=== PATIENT | female | born 1945 | race Caucasian/White ===

== ENCOUNTER 2019-10-13 07:29 | Inpatient (IN) | payer MEDICARE, MEDICAID ==
[~2019-10-13] VITALS: Ht 167.6 cm; Wt 46.8 kg
--- NOTE | 2019-10-13 08:27 | NUR ---
STAND BY ASSIST TO BATHROOM
[2019-10-13 09:05] LABS: BASOPHILS # (AUTO) 0.03 x10^3/uL (0-0.1); BASOPHILS % (AUTO) 0 % (0-1); EOSINOPHILS # (AUTO) 0.01 x10^3/uL (0-0.4); EOSINOPHILS % (AUTO) 0 % (1-7); LYMPHOCYTES # (AUTO) 1.49 x10^3/uL (1-3.4); LYMPHOCYTES % (AUTO) 10 % (22-44); MD NO; MEAN CORPUSCULAR HEMOGLOBIN 30.3 pg (27.0-34.8); MEAN PLATELET VOLUME 6.8 fL (7.4-10.4); MONOCYTES # (AUTO) 0.66 x10^3/uL (0.2-0.8); MONOCYTES % (AUTO) 4 % (2-9); NEUTROPHILS # (AUTO) 13.51 x10^3/uL (1.8-6.8); NEUTROPHILS % (AUTO) 86 % (42-75); PLATELET COUNT 253 x10^3/uL (130-400); RED BLOOD COUNT 4.37 x10^6/uL (3.82-5.3); RED CELL DISTRIBUTION WIDTH 14.6 % (9.6-15.2)
[2019-10-13 09:12] LABS: ALANINE AMINOTRANSFERASE 15 U/L (12-78); ALBUMIN 3.2 g/dL (3.4-5.0); ANION GAP 7 mmol/L (5-15); CALCIUM 8.8 mg/dL (8.5-10.1); CHLORIDE 95 mmol/L (98-107); CREATININE 0.78 mg/dL (0.55-1.02)
[2019-10-13 09:16] LABS: ALKALINE PHOSPHATASE 79 U/L (45-117); BILIRUBIN,TOTAL 0.5 mg/dL (0.2-1.0); TOTAL PROTEIN 7.1 g/dL (6.4-8.2)
[2019-10-13 09:18] LABS: TROPONIN I 0.422 ng/mL (0.000-0.045)
[2019-10-13] MEDS ORDERED: VANCOMYCIN PER PHARMACY MC PRN (09:30)
[2019-10-13] MEDS ORDERED: PIPERACILLIN/TAZO/PMX 3.375GM 50 ML ONE (09:43)
[2019-10-13] MEDS: PIPERACILLIN/TAZO/PMX 3.375GM 50 ML IV SCH ×3 (09:45→23:02)
--- NOTE | 2019-10-13 09:49 | NUR ---
STAND BY ASSIST TO BATHROOM. PT BACK RESTING IN BED, DILLAN LIGHT IN REACH
[2019-10-13] MEDS ORDERED: ONDANSETRON ODT 4 MG PO PRN (10:00)
[2019-10-13] MEDS ORDERED: hydrALAzine 20 MG/ML, 1ML IVPush PRN (10:00)
[2019-10-13] MEDS ORDERED: morphine SULFATE 10 MG/ML, 1ML IVPush PRN (10:00)
--- NOTE | 2019-10-13 10:15 | NUR ---
report called to thierry mendez
[2019-10-13 10:44] VITALS: BP 133/84
[2019-10-13] MEDS ORDERED: ALBUTEROL HFA 90 MCG/SPRAY INH PRN (11:00)
[2019-10-13] MEDS: METOPROLOL SUCCINATE 50 MG TAB.ER.24H PO SCH (11:00)
[2019-10-13] MEDS: AZITHROMYCIN 500 MG in SODIUM CHLORIDE 0.9% 250 ML IV SCH (11:00)
[2019-10-13] MEDS ORDERED: PHARMACOKINETIC CONSULTATION MC ONE (11:00)
[2019-10-13] MEDS ORDERED: PHARMACOKINETIC MONITORING MC PRN (11:00)
[2019-10-13] MEDS ORDERED: VANCOMYCIN 1,600 MG in SODIUM CHLORIDE 0.9% 250 ML IV ONE (11:30)
[2019-10-13 13:14] VITALS: BP 143/89
[2019-10-13] MEDS ORDERED: OxyconTIN ER 40 MG TAB.ER PO SCH (13:30)
[2019-10-13] MEDS ORDERED: OXYC80TA25 PO (13:47)
[2019-10-13] MEDS ORDERED: CYCL-259 PO (13:50)
[2019-10-13] MEDS ORDERED: GABA300C10 PO (13:50)
[2019-10-13] MEDS ORDERED: BUSP5TAB2 PO (13:50)
[2019-10-13] MEDS ORDERED: MONT10TA6 PO (13:50)
[2019-10-13 15:25] LABS: TROPONIN I 0.379 ng/mL (0.000-0.045)
[2019-10-13] MEDS ORDERED: RIVAROXABAN 20 MG TABLET PO SCH (17:00)
[2019-10-13 20:25] VITALS: BP 136/87
[2019-10-13] MEDS ORDERED: MONTELUKAST 10 MG TABLET PO SCH (21:00)
[2019-10-13] MEDS ORDERED: GABAPENTIN 100 MG CAPSULE PO SCH (21:00)
[2019-10-13] MEDS ORDERED: BUSPIRONE 5 MG TABLET PO SCH (21:00)
[2019-10-13] MEDS: OxyconTIN ER 40 MG TAB.ER PO SCH (21:03)
[2019-10-13] MEDS: GABAPENTIN 100 MG CAPSULE PO SCH (21:03)
[2019-10-13] MEDS: BUSPIRONE 5 MG TABLET PO SCH (21:04)
[2019-10-14 02:00] VITALS: BP 149/92
[2019-10-14 05:10] LABS: BASOPHILS # (AUTO) 0.05 x10^3/uL (0-0.1); BASOPHILS % (AUTO) 0 % (0-1); EOSINOPHILS # (AUTO) 0.24 x10^3/uL (0-0.4); EOSINOPHILS % (AUTO) 2 % (1-7); LYMPHOCYTES # (AUTO) 1.67 x10^3/uL (1-3.4); LYMPHOCYTES % (AUTO) 15 % (22-44); MD NO; MEAN CORPUSCULAR HEMOGLOBIN 30.3 pg (27.0-34.8); MEAN CORPUSCULAR VOLUME 91.7 fL (80-100); MEAN PLATELET VOLUME 6.8 fL (7.4-10.4); MONOCYTES # (AUTO) 0.78 x10^3/uL (0.2-0.8); MONOCYTES % (AUTO) 7 % (2-9); NEUTROPHILS # (AUTO) 8.47 x10^3/uL (1.8-6.8); NEUTROPHILS % (AUTO) 76 % (42-75); PLATELET COUNT 239 x10^3/uL (130-400); RED BLOOD COUNT 4.32 x10^6/uL (3.82-5.3); RED CELL DISTRIBUTION WIDTH 14.1 % (9.6-15.2)
[2019-10-14 05:17] LABS: ANION GAP 7 mmol/L (5-15); CALCIUM 8.1 mg/dL (8.5-10.1); CHLORIDE 97 mmol/L (98-107)
[2019-10-14 05:22] LABS: TROPONIN I 0.363 ng/mL (0.000-0.045)
[2019-10-14 05:30] VITALS: BP 137/81
[2019-10-14] MEDS: PIPERACILLIN/TAZO/PMX 3.375GM 50 ML IV SCH ×4 (05:33→22:48)
[2019-10-14] MEDS: METOPROLOL SUCCINATE 50 MG TAB.ER.24H PO SCH (05:34)
[2019-10-14] MEDS: BACLOFEN 10 MG TABLET PO PRN (06:26)
[2019-10-14] MEDS: VANCOMYCIN PMX 1GM/200ML 200 ML IVPB SCH ×2 (06:26→23:58)
[2019-10-14 07:30] VITALS: BP 150/92
[2019-10-14] MEDS: GABAPENTIN 100 MG CAPSULE PO SCH ×2 (08:32→21:28)
[2019-10-14] MEDS: BUSPIRONE 5 MG TABLET PO SCH ×2 (08:32→21:28)
[2019-10-14] MEDS: MONTELUKAST 10 MG TABLET PO SCH (08:32)
[2019-10-14] MEDS: OxyconTIN ER 40 MG TAB.ER PO SCH ×2 (08:33→21:28)
[2019-10-14 11:21] LABS: TROPONIN I 0.223 ng/mL (0.000-0.045)
[2019-10-14] MEDS: AZITHROMYCIN 500 MG in SODIUM CHLORIDE 0.9% 250 ML IV SCH (11:53)
[2019-10-14] MEDS: ACETAMINOPHEN 325 MG TABLET PO PRN (12:01)
[2019-10-14] MEDS ORDERED: POTASSIUM CHLORIDE 20 MEQ TAB.ER.PRT PO ONE (13:00)
[2019-10-14 13:29] VITALS: BP 128/75
[2019-10-14] MEDS: RIVAROXABAN 15 MG TABLET PO SCH (17:00)
[2019-10-14 19:35] VITALS: BP 145/95
[2019-10-14] MEDS ORDERED: OxyconTIN ER 40 MG TAB.ER PO SCH (22:00)
[2019-10-14] MEDS: BUTALB/APAP/CAFFEINE 50MG/325MG/40MG PO PRN (22:47)
[2019-10-15] MEDS: METOPROLOL SUCCINATE 50 MG TAB.ER.24H PO SCH (04:54)
[2019-10-15] MEDS: PIPERACILLIN/TAZO/PMX 3.375GM 50 ML IV SCH ×4 (04:54→22:40)
[2019-10-15 05:00] VITALS: BP 148/78
[2019-10-15] MEDS: ONDANSETRON 2MG/ML, 2ML IVPush PRN ×2 (05:21→21:08)
[2019-10-15] MEDS: GABAPENTIN 100 MG CAPSULE PO SCH ×2 (09:00→20:31)
[2019-10-15] MEDS: MONTELUKAST 10 MG TABLET PO SCH (09:00)
[2019-10-15] MEDS: OxyconTIN ER 40 MG TAB.ER PO SCH ×2 (09:00→20:31)
[2019-10-15] MEDS: BUSPIRONE 5 MG TABLET PO SCH ×2 (09:00→20:31)
[2019-10-15 10:18] VITALS: BP 141/87
[2019-10-15] MEDS: AZITHROMYCIN 500 MG in SODIUM CHLORIDE 0.9% 250 ML IV SCH (11:00)
[2019-10-15 14:03] VITALS: BP 137/80
[2019-10-15] MEDS: BUTALB/APAP/CAFFEINE 50MG/325MG/40MG PO PRN (15:00)
[2019-10-15] MEDS ORDERED: [UNRECOGNIZED DRUG - OTHER] INH (15:49)
[2019-10-15] MEDS ORDERED: BECL10.62 INH (15:50)
[2019-10-15] MEDS ORDERED: TIOT4MIS3 INH (15:51)
[2019-10-15] MEDS: RIVAROXABAN 15 MG TABLET PO SCH (17:00)
[2019-10-15] MEDS: VANCOMYCIN PMX 1GM/200ML 200 ML IVPB SCH (17:44)
[2019-10-15 21:32] VITALS: BP 147/83
[2019-10-16 01:12] VITALS: BP 118/78
[2019-10-16] MEDS: BUTALB/APAP/CAFFEINE 50MG/325MG/40MG PO PRN ×2 (01:29→18:05)
[2019-10-16] MEDS: PIPERACILLIN/TAZO/PMX 3.375GM 50 ML IV SCH ×4 (05:27→23:08)
[2019-10-16] MEDS: METOPROLOL SUCCINATE 50 MG TAB.ER.24H PO SCH (05:28)
[2019-10-16 05:44] VITALS: BP 125/77
[2019-10-16 06:01] LABS: CHLORIDE 99 mmol/L (98-107)
[2019-10-16 06:03] LABS: BASOPHILS # (AUTO) 0.03 x10^3/uL (0-0.1); BASOPHILS % (AUTO) 1 % (0-1); EOSINOPHILS # (AUTO) 0.26 x10^3/uL (0-0.4); EOSINOPHILS % (AUTO) 4 % (1-7); LYMPHOCYTES # (AUTO) 1.43 x10^3/uL (1-3.4); LYMPHOCYTES % (AUTO) 24 % (22-44); MD NO; MEAN CORPUSCULAR HEMOGLOBIN 30.8 pg (27.0-34.8); MEAN CORPUSCULAR HGB CONC 33.4 g/dL (32.4-35.8); MEAN CORPUSCULAR VOLUME 92.2 fL (80-100); MEAN PLATELET VOLUME 6.7 fL (7.4-10.4); MONOCYTES # (AUTO) 0.53 x10^3/uL (0.2-0.8); MONOCYTES % (AUTO) 9 % (2-9); NEUTROPHILS # (AUTO) 3.68 x10^3/uL (1.8-6.8); NEUTROPHILS % (AUTO) 62 % (42-75); PLATELET COUNT 240 x10^3/uL (130-400); RED CELL DISTRIBUTION WIDTH 14.2 % (9.6-15.2)
[2019-10-16 06:07] LABS: ANION GAP 6 mmol/L (5-15); CALCIUM 8.2 mg/dL (8.5-10.1)
[2019-10-16 08:11] VITALS: BP 125/70
[2019-10-16] MEDS: GABAPENTIN 100 MG CAPSULE PO SCH ×2 (09:12→21:15)
[2019-10-16] MEDS: MONTELUKAST 10 MG TABLET PO SCH (09:13)
[2019-10-16] MEDS: BUSPIRONE 5 MG TABLET PO SCH ×2 (09:13→21:15)
[2019-10-16] MEDS: OxyconTIN ER 40 MG TAB.ER PO SCH ×2 (09:13→21:00)
[2019-10-16] MEDS: AZITHROMYCIN 500 MG in SODIUM CHLORIDE 0.9% 250 ML IV SCH (12:00)
[2019-10-16 13:09] VITALS: BP 128/62
[2019-10-16] MEDS: RIVAROXABAN 15 MG TABLET PO SCH (17:19)
[2019-10-16] MEDS: VANCOMYCIN PMX 1GM/200ML 200 ML IVPB SCH (18:05)
[2019-10-16 21:03] VITALS: BP 130/76
[2019-10-16] MEDS ORDERED: OxyconTIN ER 20 MG TAB.ER ONE (21:11)
[2019-10-17 00:41] VITALS: BP 135/79
[2019-10-17] MEDS: METOPROLOL SUCCINATE 50 MG TAB.ER.24H PO SCH (05:22)
[2019-10-17] MEDS: PIPERACILLIN/TAZO/PMX 3.375GM 50 ML IV SCH ×4 (05:22→22:49)
[2019-10-17] MEDS: BUTALB/APAP/CAFFEINE 50MG/325MG/40MG PO PRN (05:34)
[2019-10-17 06:21] VITALS: BP 141/80
[2019-10-17] MEDS: OxyconTIN ER 40 MG TAB.ER PO SCH ×2 (08:52→21:49)
[2019-10-17] MEDS: MONTELUKAST 10 MG TABLET PO SCH (08:53)
[2019-10-17] MEDS: GABAPENTIN 100 MG CAPSULE PO SCH ×2 (08:53→21:49)
[2019-10-17] MEDS: BUSPIRONE 5 MG TABLET PO SCH ×2 (08:53→21:49)
[2019-10-17] MEDS: AZITHROMYCIN 500 MG in SODIUM CHLORIDE 0.9% 250 ML IV SCH (11:28)
[2019-10-17 12:17] VITALS: BP 140/87
[2019-10-17] MEDS: VANCOMYCIN PMX 1GM/200ML 200 ML IVPB SCH (13:48)
[2019-10-17] MEDS: RIVAROXABAN 15 MG TABLET PO SCH (17:04)
[2019-10-17] MEDS: BACLOFEN 10 MG TABLET PO PRN (17:12)
[2019-10-17 18:26] VITALS: BP 140/90
[2019-10-18 01:17] VITALS: BP 144/89
[2019-10-18 04:58] LABS: BASOPHILS # (AUTO) 0.04 x10^3/uL (0-0.1); BASOPHILS % (AUTO) 1 % (0-1); EOSINOPHILS % (AUTO) 7 % (1-7); LYMPHOCYTES # (AUTO) 1.65 x10^3/uL (1-3.4); LYMPHOCYTES % (AUTO) 29 % (22-44); MD NO; MEAN CORPUSCULAR HEMOGLOBIN 30.3 pg (27.0-34.8); MEAN CORPUSCULAR HGB CONC 32.7 g/dL (32.4-35.8); MEAN CORPUSCULAR VOLUME 92.6 fL (80-100); MONOCYTES # (AUTO) 0.54 x10^3/uL (0.2-0.8); MONOCYTES % (AUTO) 10 % (2-9); NEUTROPHILS # (AUTO) 3.03 x10^3/uL (1.8-6.8); NEUTROPHILS % (AUTO) 54 % (42-75); PLATELET COUNT 266 x10^3/uL (130-400); RED BLOOD COUNT 3.76 x10^6/uL (3.82-5.3); RED CELL DISTRIBUTION WIDTH 13.9 % (9.6-15.2)
[2019-10-18 05:05] LABS: CHLORIDE 100 mmol/L (98-107)
[2019-10-18 05:09] LABS: ANION GAP 4 mmol/L (5-15); CALCIUM 8.8 mg/dL (8.5-10.1); CREATININE 0.79 mg/dL (0.55-1.02)
[2019-10-18] MEDS: PIPERACILLIN/TAZO/PMX 3.375GM 50 ML IV SCH ×4 (05:16→22:53)
[2019-10-18] MEDS: METOPROLOL SUCCINATE 50 MG TAB.ER.24H PO SCH (06:18)
[2019-10-18] MEDS: VANCOMYCIN PMX 1GM/200ML 200 ML IVPB SCH (06:19)
[2019-10-18] MEDS: BACLOFEN 10 MG TABLET PO PRN (06:19)
[2019-10-18 06:23] VITALS: BP 148/84
[2019-10-18] MEDS: OxyconTIN ER 40 MG TAB.ER PO SCH ×2 (08:18→20:26)
[2019-10-18] MEDS: GABAPENTIN 100 MG CAPSULE PO SCH ×2 (08:18→20:26)
[2019-10-18] MEDS: BUSPIRONE 5 MG TABLET PO SCH ×2 (08:18→20:25)
[2019-10-18] MEDS: MONTELUKAST 10 MG TABLET PO SCH (08:18)
[2019-10-18] MEDS ORDERED: REGADENOSON 0.4 MG/5 ML SYRINGE ONE (09:09)
[2019-10-18] MEDS ORDERED: METO-282 PO (10:53)
[2019-10-18] MEDS ORDERED: BUTA1CAP30 PO (10:53)
[2019-10-18] MEDS ORDERED: OXYC20TA42 PO (10:53)
[2019-10-18] MEDS ORDERED: CARI350T PO (10:53)
[2019-10-18] MEDS ORDERED: ONDA4TAB7 PO (10:53)
[2019-10-18] MEDS ORDERED: ACET325C6 PO (10:53)
[2019-10-18 12:03] VITALS: BP 157/92
[2019-10-18] MEDS: AZITHROMYCIN 500 MG in SODIUM CHLORIDE 0.9% 250 ML IV SCH (12:08)
[2019-10-18] MEDS: BUTALB/APAP/CAFFEINE 50MG/325MG/40MG PO PRN ×2 (12:22→20:14)
[2019-10-18] MEDS ORDERED: METOPROLOL SUCCINATE 50 MG TAB.ER.24H PO SCH ×2 (14:00)
[2019-10-18] MEDS ORDERED: TEMPLATE NON-FORMULARY MED. (Butalbital/Aspirin/Caffeine** (Fiorinal 50-325-40 Mg Capsule PO PRN (16:00)
[2019-10-18] MEDS ORDERED: CARISOPRODOL 350 MG TABLET PO PRN (16:00)
[2019-10-18] MEDS ORDERED: LEVALBUTEROL INH SCH (16:00)
[2019-10-18] MEDS: RIVAROXABAN 15 MG TABLET PO SCH (17:12)
[2019-10-18 18:30] VITALS: BP 150/90
[2019-10-18] MEDS: CYCLOBENZAPRINE 10 MG TABLET PO SCH (20:27)
[2019-10-18] MEDS: BUDESONIDE 0.5 MG/2 ML INHA NEB SCH (21:00)
[2019-10-19 02:17] VITALS: BP 126/78
[2019-10-19 04:38] LABS: BASOPHILS # (AUTO) 0.06 x10^3/uL (0-0.1); BASOPHILS % (AUTO) 1 % (0-1); EOSINOPHILS # (AUTO) 0.37 x10^3/uL (0-0.4); EOSINOPHILS % (AUTO) 5 % (1-7); LYMPHOCYTES # (AUTO) 2.15 x10^3/uL (1-3.4); LYMPHOCYTES % (AUTO) 27 % (22-44); MD NO; MEAN CORPUSCULAR HEMOGLOBIN 30.3 pg (27.0-34.8); MEAN CORPUSCULAR HGB CONC 32.3 g/dL (32.4-35.8); MEAN CORPUSCULAR VOLUME 93.7 fL (80-100); MEAN PLATELET VOLUME 6.6 fL (7.4-10.4); MONOCYTES # (AUTO) 0.69 x10^3/uL (0.2-0.8); MONOCYTES % (AUTO) 9 % (2-9); NEUTROPHILS % (AUTO) 59 % (42-75); PLATELET COUNT 298 x10^3/uL (130-400); RED BLOOD COUNT 3.81 x10^6/uL (3.82-5.3); RED CELL DISTRIBUTION WIDTH 13.9 % (9.6-15.2)
[2019-10-19] MEDS: BUTALB/APAP/CAFFEINE 50MG/325MG/40MG PO PRN ×2 (04:39→13:36)
[2019-10-19 04:45] LABS: ANION GAP 3 mmol/L (5-15); CALCIUM 8.9 mg/dL (8.5-10.1); CHLORIDE 100 mmol/L (98-107)
[2019-10-19] MEDS: PIPERACILLIN/TAZO/PMX 3.375GM 50 ML IV SCH ×4 (05:11→22:41)
[2019-10-19] MEDS: METOPROLOL SUCCINATE 25 MG TAB.ER.24H PO SCH ×3 (06:23→22:41)
[2019-10-19 06:55] VITALS: BP_SYST 129; BP_DIAS 79; BP_DIAS 80
[2019-10-19] MEDS: MONTELUKAST 10 MG TABLET PO SCH (09:23)
[2019-10-19] MEDS: GABAPENTIN 100 MG CAPSULE PO SCH ×2 (09:23→20:35)
[2019-10-19] MEDS: OxyconTIN ER 40 MG TAB.ER PO SCH ×2 (09:23→20:35)
[2019-10-19] MEDS: BUSPIRONE 5 MG TABLET PO SCH ×2 (09:23→20:36)
[2019-10-19] MEDS: BUDESONIDE 0.5 MG/2 ML INHA NEB SCH ×2 (09:50→19:31)
[2019-10-19] MEDS: ALBUTEROL/IPRATROPIUM 2.5MG/0.5MG, 3 ML NEB SCH ×2 (09:50→21:00)
[2019-10-19] MEDS: AZITHROMYCIN 500 MG in SODIUM CHLORIDE 0.9% 250 ML IV SCH (11:58)
[2019-10-19] MEDS: ONDANSETRON 2MG/ML, 2ML IVPush PRN (13:34)
[2019-10-19 13:53] VITALS: BP 127/74
[2019-10-19] MEDS: RIVAROXABAN 15 MG TABLET PO SCH (16:56)
[2019-10-19 19:57] VITALS: BP 137/89
[2019-10-19] MEDS: CYCLOBENZAPRINE 10 MG TABLET PO SCH (20:35)
[2019-10-19 22:36] VITALS: BP 152/90
[2019-10-19] MEDS: ACETAMINOPHEN 325 MG TABLET PO PRN (22:41)
[2019-10-20 00:45] VITALS: BP 121/76
[2019-10-20] MEDS: ALBUTEROL/IPRATROPIUM 2.5MG/0.5MG, 3 ML NEB SCH ×2 (03:00→07:32)
[2019-10-20] MEDS: BUTALB/APAP/CAFFEINE 50MG/325MG/40MG PO PRN (04:27)
[2019-10-20 05:44] LABS: BASOPHILS # (AUTO) 0.05 x10^3/uL (0-0.1); BASOPHILS % (AUTO) 1 % (0-1); EOSINOPHILS # (AUTO) 0.55 x10^3/uL (0-0.4); EOSINOPHILS % (AUTO) 8 % (1-7); LYMPHOCYTES # (AUTO) 2.44 x10^3/uL (1-3.4); LYMPHOCYTES % (AUTO) 37 % (22-44); MD NO; MEAN CORPUSCULAR HEMOGLOBIN 30.3 pg (27.0-34.8); MEAN CORPUSCULAR HGB CONC 32.6 g/dL (32.4-35.8); MEAN CORPUSCULAR VOLUME 93.1 fL (80-100); MEAN PLATELET VOLUME 7.2 fL (7.4-10.4); MONOCYTES # (AUTO) 0.57 x10^3/uL (0.2-0.8); MONOCYTES % (AUTO) 9 % (2-9); NEUTROPHILS # (AUTO) 2.97 x10^3/uL (1.8-6.8); NEUTROPHILS % (AUTO) 45 % (42-75); PLATELET COUNT 286 x10^3/uL (130-400); RED BLOOD COUNT 3.72 x10^6/uL (3.82-5.3)
[2019-10-20 05:48] LABS: ANION GAP 4 mmol/L (5-15); CALCIUM 8.7 mg/dL (8.5-10.1); CHLORIDE 97 mmol/L (98-107); CREATININE 0.88 mg/dL (0.55-1.02)
[2019-10-20 06:23] VITALS: BP 138/77
[2019-10-20] MEDS: PIPERACILLIN/TAZO/PMX 3.375GM 50 ML IV SCH ×2 (06:24→11:08)
[2019-10-20] MEDS: METOPROLOL SUCCINATE 25 MG TAB.ER.24H PO SCH ×2 (06:24→13:56)
[2019-10-20] MEDS: BUDESONIDE 0.5 MG/2 ML INHA NEB SCH (07:20)
[2019-10-20 07:39] VITALS: BP 133/74
[2019-10-20] MEDS: GABAPENTIN 100 MG CAPSULE PO SCH (08:47)
[2019-10-20] MEDS: BUSPIRONE 5 MG TABLET PO SCH (08:47)
[2019-10-20] MEDS: OxyconTIN ER 40 MG TAB.ER PO SCH (08:47)
[2019-10-20] MEDS: MONTELUKAST 10 MG TABLET PO SCH (08:47)
[2019-10-20] MEDS: AZITHROMYCIN 500 MG in SODIUM CHLORIDE 0.9% 250 ML IV SCH (11:43)
[2019-10-20] MEDS ORDERED: RIVA15TA PO (13:09)
[2019-10-20 13:17] VITALS: BP 143/90
== END 2019-10-20 15:53 | disposition home or self-care (01) | DRG 871 ==
LOC: ED 07:37 → SUATTDRO 09:05 → EDIP 09:05 → 3WST 10:22 → 5SO 10-16 13:56 → 3N 10-19 12:09
PROVIDERS: ADMIT Hospitalist; ATTEND Hospitalist
DX: A41.9 Sepsis, unspecified organism (principal); J18.9 Pneumonia, unspecified organism; I24.8 Other forms of acute ischemic heart disease; J44.0 Chronic obstructive pulmonary disease with (acute) lower respiratory infection; D68.69 Other thrombophilia; I48.91 Unspecified atrial fibrillation; M45.9 Ankylosing spondylitis of unspecified sites in spine; I48.0 Paroxysmal atrial fibrillation; J44.9 Chronic obstructive pulmonary disease, unspecified; Z83.6 Family history of other diseases of the respiratory system; Z91.018 Allergy to other foods; Z03.818 Encounter for observation for suspected exposure to other biological agents ruled out
CPT/HCPCS: 36415; 71045; 78452; 80048; 80053; 80202; 83605; 83735; 83880; 84145; 84484; 85025; 87040; 87070; 87205; 93005; 93017; 93306; 94640; 96374; G0378; J0456; J2405; J2543; J2785; J3370; J7626; Q0162; A9502; J7050